=== PATIENT | male | born 1960 ===

== ENCOUNTER 2018-03-13 09:28 | Emergency (ER) | payer MEDICAID ==
[2018-03-13 09:29] VITALS: BMI 29.9
[2018-03-13 09:35] VITALS: TEMP 98.3
--- NOTE | 2018-03-13 09:52 | ED PDOC ---
Arrival/HPI - General Chief Complaint: Back Pain Time Seen by Provider: 03/13/18 09:36 Historian: Patient - History of Present Illness Narrative History of Present Illness (Text): 03/13/18 09:49 Pt is a 57 yr old male with PMH of SVT and cervicalgia who presents to the ED with neck pain with radiation into the right arm x 1 week. Pt states that he's issues with his neck before but has not had associated right arm pain. denies right arm weakness of dysfunction or change in sensation, chest pain, shortness of breath, fever, chills, nausea, vomiting, diarrhea, headache, trauma or psychological complaints. Time/Duration: 24 hours Symptom Onset: Sudden Symptom Course: Unchanged Quality: Aching, Tightness Severity Level: 4 Activities at Onset: Rest, Sleeping Context: Home, Work Past Medical History - Provider Review Nursing Documentation Reviewed: Yes - Travel History Have you recently traveled outside [place] w/in the past 3 mons?: No - Infectious Disease Hx of Infectious Diseases: None - Tetanus Immunization Tetanus Immunization: Unknown - Past Medical History Past Medical History: No Previous - Cardiac Hx Cardiac Disorders: No - Pulmonary Hx Respiratory Disorders: Yes Hx Pneumonia: Yes (1988) - Neurological Hx Neurological Disorder: No - HEENT Hx HEENT Disorder: No - Renal Hx Renal Disorder: No - Endocrine/Metabolic Hx Endocrine Disorders: No - Hematological/Oncological Hx Blood Disorders: No - Integumentary Hx Dermatological Disorder: No - Musculoskeletal/Rheumatological Hx Musculoskeletal Disorders: No - Gastrointestinal Hx Gastrointestinal Disorders: Yes Hx Diverticulitis: Yes (colon resection 2005) - Genitourinary/Gynecological Hx Genitourinary Disorders: No - Psychiatric Hx Psychophysiologic Disorder: No Hx Depression: No Hx Emotional Abuse: No Hx Physical Abuse: No Hx Substance Use: No - Surgical History Other/Comment: colon resection 2005 - Anesthesia Hx Anesthesia: Yes Hx Anesthesia Reactions: No Hx Malignant Hyperthermia: No - Suicidal Assessment Feels Threatened In Home Enviroment: No Family/Social History - Physician Review Nursing Documentation Reviewed: Yes Family/Social History: Unknown Family HX Smoking Status: Former Smoker Hx Alcohol Use: Yes Frequency of alcohol use: Socially Hx Substance Use: No Hx Substance Use Treatment: No Allergies/Home Meds Allergies/Adverse Reactions: Allergies No Known Allergies Allergy (Verified 07/26/16 19:25) Review of Systems - Review of Systems Constitutional: Normal Eyes: Normal ENT: Normal Respiratory: Normal Cardiovascular: Normal Gastrointestinal: Normal Genitourinary Male: Normal Musculoskeletal: Normal, Neck Pain Skin: Normal Neurological: Normal Endocrine: Normal Hemo/Lymphatic: Normal Psychiatric: Normal Physical Exam Vital Signs Reviewed: Yes Vital Signs Temp Pulse Resp BP Pulse Ox 03/13/18 10:55 98.3 F 65 18 155/82 H 98 03/13/18 10:41 65 18 155/82 H 98 03/13/18 09:31 98.3 F 57 L 16 158/87 H 97 Temperature: Afebrile Blood Pressure: Hypertensive Pulse: Regular Respiratory Rate: Normal Appearance: Positive for: Well-Appearing, Non-Toxic, Comfortable Pain Distress: Mild Mental Status: Positive for: Alert and Oriented X 3 - Systems Exam Head: Present: Atraumatic, Normocephalic Neck: Present: Normal Range of Motion, Paraspinal Tenderness, Other (active and latent trigger points in the upper traps). No: Meningeal Signs, MIDLINE TENDERNESS, JVD Respiratory/Chest: Present: Clear to Auscultation, Good Air Exchange. No: Respiratory Distress, Accessory Muscle Use Cardiovascular: Present: Regular Rate and Rhythm, Normal S1, S2. No: Murmurs Abdomen: Present: Normal Bowel Sounds. No: Tenderness, Distention, Peritoneal Signs Back: Present: Normal Inspection Upper Extremity: Present: Normal Inspection, Normal ROM, NORMAL PULSES, Neurovascularly Intact, Capillary Refill < 2s. No: Cyanosis, Edema, Temperature Abnormalties Lower Extremity: Present: Normal Inspection, NORMAL PULSES, Normal ROM. No: Edema Neurological: Present: GCS=15, CN II-XII Intact, Speech Normal, Motor Func Grossly Intact, Normal Sensory Function, Gait Normal Skin: Present: Warm, Dry, Normal Color. No: Rashes Psychiatric: Present: Alert, Oriented x 3, Normal Insight, Normal Concentration Medical Decision Making ED Course and Treatment: 03/13/18 09:52 Impression Pt is a 57 yr old male with PMH of SVT and cervicalgia who presents to the ED with neck pain with radiation into the right arm x 1 week. On exam, (-) duane test, very limited active ROM in the neck due to excessive tone of upper trapezius and cervical paraspinals, good motor strength in bilateral UE, SILT Pt has palpable nodules in the muscle indicating trigger points that refer pain into the right arm with point pressure Plan Discuss options for relieving muscle spasm May require MRI; discuss with PMD Progress note No muscle relaxants given as pt stated he is returning to work Send home with cyclobenzaprine 5mg tid prn to be taken in the evening Ibuprofen 600mg PO q6 prn work note 03/13/18 10:46 Discussed doing TrP injections with lidocaine 1% or Toradol 30 mg IM Pt chose to go with toradol im VSS on d/c - Medication Orders Current Medication Orders: Discontinued Medications Ketorolac Tromethamine (Toradol) 30 mg IM STAT STA Stop: 03/13/18 10:15 Last Admin: 03/13/18 10:32 Dose: 30 mg MAR Pain Assessment Document 03/13/18 10:32 SF (Rec: 03/13/18 10:32 SF [id number] Pain Reassessment Is this a pain reassessment? Yes Sleep Is patient sleeping during reassessment? No Presence of Pain Presence of Pain Yes IM Administration Charges Document 03/13/18 10:32 SF (Rec: 03/13/18 10:32 SF [id number] Injection Site MAR Injection Site Left Deltoid Charges for Administration # of IM Administrations 1 Disposition/Present on Arrival - Present on Arrival Any Indicators Present on Arrival: Yes History of DVT/PE: No History of Uncontrolled Diabetes: No Urinary Catheter: No History of Decub. Ulcer: No History Surgical Site Infection Following: None - Disposition Have Diagnosis and Disposition been Completed?: Yes Diagnosis: Cervicalgia, Trigger point of neck, Trigger point of right shoulder region Disposition: HOME/ ROUTINE Disposition Time: 10:01 Patient Plan: Discharge Condition: STABLE Discharge Instructions (ExitCare): Generalized Neck Pain (DC) Additional Instructions: Gavin, thank you for letting us take care of you today. Your provider was SOFIA Espinosa. You were treated for neck pain and muscle spasms causing right arm pain. The emergency medical care you received today was directed at your acute symptoms. If you were prescribed any medication, please fill it and take as directed. It may take several days for your symptoms to resolve. Return to the Emergency Department if your symptoms worsen, do not improve, or if you have any other problems. Please take the medication as directed and follow up with your Primary doctor to schedule an MRI of the neck to see if you have a disc prolapse or nerve impingement. Please contact your doctor or call one of the physicians/clinics you have been referred to that are listed on the Patient Visit Information form that is included in your discharge packet. Bring any paperwork you were given at discharge with you along with any medications you are taking to your follow up visit. Our treatment cannot replace ongoing medical care by a primary care provider (PCP) outside of the emergency department. Thank you for allowing the [facility] team to be part of your care today. Prescriptions: Cyclobenzaprine [Flexeril] 5 mg PO TID 5 Days #15 tab Ibuprofen [Motrin Tab] 600 mg PO Q6 PRN 5 Days #20 tab PRN Reason: pain/fever Referrals: Khushboo Stringer DO [Primary Care Provider] - Follow up with primary Forms: [employer] (Welsh), WORK NOTE
[2018-03-13 10:43] VITALS: BP 155/82; PULSE 65; RESP 18; O2SAT 98
== END 2018-03-13 10:55 | disposition home or self-care (01) ==
LOC: ED 09:28
DX: M54.2 Cervicalgia (principal); M79.1 Myalgia
CPT/HCPCS: 96372; 99284; J1885